=== PATIENT | male | born 1935 | race Caucasian/White ===

== ENCOUNTER 2018-11-11 10:42 | Emergency (ER) | payer MEDICARE ==
[2018-11-11 10:51] VITALS: BP 188/85
--- NOTE | 2018-11-11 11:10 | UC ---
Abdominal Pain Male HPI - HPI Summary HPI Summary: Patient is a 83 year old gentleman who presents today with abdominal pain and a mass for past 2 weeks. Notices a mass superior to the umbilicus, first time noticed it after shoveling but it was not painful at that time. Noticed worsening last night with some pain. Denies any other symptoms. Unsure of what makes it worse or better. Denies any fever, chills, cough chest pain or shortness of breath . Denies any abdominal pain , nausea or vomiting , diarrhea or constipation. - History of Current Complaint Chief Complaint: UCAbdominalPain Stated Complaint: ABD PAIN Time Seen by Provider: 11/11/18 11:02 Hx Obtained From: Patient Pain Intensity: 4 - Allergies/Home Medications Allergies/Adverse Reactions: Allergies Allergy/AdvReac Type Severity Reaction Status Date / Time No Known Allergies Allergy Verified 11/11/18 10:44 PMH/Surg Hx/FS Hx/Imm Hx - Additional Past Medical History Additional PMH: Hypertension Hyperlipidemia Previously Healthy: Yes - Surgical History Surgical History: Yes Surgery Procedure, Year, and Place: HERNIA REPAIR 1989 [facility] – [place]. RIGHT KNEE SCOPING 1989? [facility] [place]. BILAT CATARACT REMOVAL 2013 [facility] [place]. 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 - Family History Known Family History: Positive: None - Social History Alcohol Use: Daily Alcohol Amount: 1 WINE OR BEER DAILY Substance Use Type: None Smoking Status (MU): Never Smoked Tobacco Have You Smoked in the Last Year: No - Immunization History Most Recent Influenza Vaccination: 07/2016 Most Recent Tetanus Shot: 2008 Most Recent Pneumonia Vaccination: 08/2006 Review of Systems All Other Systems Reviewed And Are Negative: Yes Constitutional: Positive: Negative Skin: Positive: Negative Eyes: Positive: Negative ENT: Positive: Negative Respiratory: Positive: Negative Cardiovascular: Positive: Negative Gastrointestinal: Positive: Abdominal Pain, Other - Periumbilical abdominal lump Genitourinary: Positive: Negative Motor: Positive: Negative Neurovascular: Positive: Negative Musculoskeletal: Positive: Negative Neurological: Positive: Negative Psychological: Positive: Negative Is Patient Immunocompromised?: No Physical Exam - Summary Physical Exam Summary: Physical Exam: Const: Appears well. No signs of apparent distress present. Alert and oriented x 3. Musculo: Walks with a normal gait. Head/Face: Atraumatic, normocephalic on inspection. Eyes: EOMI and PERRLA in both eyes. Conjunctivae clear. No discharge noted ENT: Hearing normal, TM normal appearing bilaterally . Respiratory: Respirations are unlabored. Lungs clear to auscultation bilaterally, no wheezing , rhonchi or rales noted . CVS: Regular rate and Rhythm, S1S2 normal , no murmurs identified. Extremities: Peripheral circulation is grossly normal. Pulses 2+ Abdomen : Soft non tender , nondistended , Bowel sounds present . No guarding , rebound tenderness or rigidity noted. There is a 3 inch x 3 inch lump noted 1 inch superior to umbilicus. Slightly tender solid mass. Freely mobile. No fluctuation or redness noted Mild weakness of rectus abdominis noted Skin: No lesions or rash located on the upper extremities or on the lower extremities. Neuro: Cranial nerves II to XII intact, motor and sensory intact. DTR Intact bilaterally. Mood is normal. Affect is normal. Triage Information Reviewed: Yes Vital Signs: Initial Vital Signs Temp 97.5 F 11/11/18 10:46 Pulse 66 11/11/18 10:46 Resp 18 11/11/18 10:46 BP 188/85 11/11/18 10:46 Pulse Ox 99 11/11/18 10:46 Vital Signs Reviewed: Yes Abd Pain Male Course/Dx - Course Course Of Treatment: During the visit today, we discussed the findings which can be secondary to a lipoma and weak rectus abdominis muscle. We discussed further options and plan for further evaluation with ultrasound. Report called to the ER provider(MAGED Martinez) at [facility], advised provider of the history, physical examination, and duration of illness so far and the need for definitive management. Patient expressed understanding . - Differential Dx/Clinical Impression Provider Diagnosis: Abdominal pain, Abdominal mass, Abdominal wall mass, Lipoma Discharge - Sign-Out/Discharge Documenting (check all that apply): Patient Departure All imaging exams completed and their final reports reviewed: No Studies - Discharge Plan Condition: Stable Disposition: HOME Patient Education Materials: Lipoma (ED) Referrals: Rell Belcher MD [Primary Care Provider] - 1 Week Additional Instructions: Patient needs additional testing, thus ER transfer advised and patient agrees. Report called to the ER provider at [facility], advised provider of the history, physical examination, and duration of illness so far and the need for further evaluation. Patient will go to ER via private car. Patients blood pressure slightly high in Urgent care today , plan follow up with PCP for better control Return to Urgent care / ER if symptoms get worse. - Billing Disposition and Condition Condition: STABLE Disposition: Home
--- NOTE | 2018-11-11 17:30 | ED ---
Abdominal Pain/Male - HPI Summary HPI Summary: Patient is an 83-year-old male who presents emergency department for evaluation of a mass to abd. wall x several months. Pt. states states he was shoveling snow a few months ago and since has noticed a bulge to abd. wall. pt. states last night bulge was larger and more painful. Pt. otherwise denies fever, chills , N/V, abd. pain. Past medical hx of HTN and high cholesterol. Symptoms are moderate in severiy. No current modifying factors. - History of Current Complaint Chief Complaint: UCAbdominalPain Stated Complaint: ABD PAIN Time Seen by Provider: 11/11/18 11:02 Hx Obtained From: Patient Pain Intensity: 0 Pain Scale Used: 0-10 Numeric - Allergies/Home Medications Allergies/Adverse Reactions: Allergies Allergy/AdvReac Type Severity Reaction Status Date / Time No Known Allergies Allergy Verified 11/11/18 12:09 PMH/Surg Hx/FS Hx/Imm Hx Previously Healthy: Yes Endocrine/Hematology History: Denies: Hx Diabetes, Hx Thyroid Disease Cardiovascular History: Reports: Hx Hypertension, Other Cardiovascular Problems/ Disorders - HIGH CHOLESTROL ON MEDS Respiratory History: Denies: Hx Asthma, Hx Chronic Obstructive Pulmonary Disease (COPD) GI History: Denies: Hx Ulcer Musculoskeletal History: Reports: Hx Arthritis - BILAT HIPS, KNEES Sensory History: Reports: Hx Cataracts - BILAT CATARACT [id number], Hx Contacts or Glasses Denies: Hx Hearing Aid Opthamlomology History: Reports: Hx Cataracts - BILAT CATARACT [id number], Hx Contacts or Glasses - Surgical History Surgery Procedure, Year, and Place: [place] [facility] [place] [facility] [place] [facility] 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 Hx Anesthesia Reactions: No Infectious Disease History: Yes Infectious Disease History: Reports: Hx Shingles - 1970s Denies: Hx Hepatitis, Hx Human Immunodeficiency Virus (HIV), Hx of Known/ Suspected MRSA, Traveled Outside the [place] in Last 30 Days - Family History Known Family History: Positive: None, Non-Contributory - Social History Occupation: Retired Lives: With Family Alcohol Use: Daily Alcohol Amount: 1 WINE OR BEER DAILY Substance Use Type: Reports: None Smoking Status (MU): Never Smoked Tobacco Have You Smoked in the Last Year: No Review of Systems Constitutional: Negative Negative: Fever, Chills Cardiovascular: Negative Respiratory: Negative Positive: Other - abd. bulge. Negative: Vomiting, Diarrhea Genitourinary: Negative Neurological: Negative All Other Systems Reviewed And Are Negative: Yes Physical Exam Triage Information Reviewed: Yes Vital Signs On Initial Exam: Initial Vitals Temp Pulse Resp BP Pulse Ox 97.5 F 66 18 188/85 99 11/11/18 10:46 11/11/18 10:46 11/11/18 10:46 11/11/18 10:46 11/11/18 10:46 Vital Signs Reviewed: Yes Appearance: Positive: Well-Appearing - Pt. lying in bed in NAD. present. Skin: Positive: Warm, Dry Head/Face: Positive: Normal Head/Face Inspection Eyes: Positive: Normal, EOMI Neck: Positive: Supple Respiratory/Lung Sounds: Positive: Clear to Auscultation, Breath Sounds Present Cardiovascular: Positive: Normal, RRR Abdomen Description: Positive: Other: - Noted above the umbilicus there is a large soft bulge that is mildly tender. Break in the abd. wall felt when pt. picks head off of bed. No rebound tenderness of guarding. Musculoskeletal: Positive: Normal, Strength/ROM Intact Neurological: Positive: Normal, CN Intact II-III Diagnostics - Vital Signs Vital Signs Temp Pulse Resp BP Pulse Ox 11/11/18 10:46 97.5 F 66 18 188/85 99 - Laboratory Lab Statement: Any lab studies that have been ordered have been reviewed, and results considered in the medical decision making process. Abdominal Pain Fem Course/Dx - Course Course Of Treatment: Patient had with likely large ventral hernia. He is afebrile with stable vital signs. Patient has minimal pain but is tender on exam. We'll check basic labs and obtain CT scan for further evaluation of possible bowel containing hernia. Labs are unremarkable. CT scan per radiology : IMPRESSION: 1. 3.5 cm above the umbilicus, there is a fat-containing hernia which which measures 2.4. x 2.4 cm. There is subtle stranding/inflammation of the surrounding subcutaneous fat. 2. The prostate measures at least 6 cm. The urinary bladder is distended. 3. Colonic diverticulosis with no secondary signs of inflammation. 4. Cholelithiasis. 5. Bilateral fat-containing inguinal hernias. 6. Bilateral hip arthroplasties. Patient was examined by Dr. Latif as well who was successfully able to reduce hernia. Will have patient follow up with surgery for definitive care. Advised patient to avoid heavy lifting and bending. To return to the ER for increased pain, fever, vomiting or if concerned. Patient understands and agrees with plan. - Diagnoses Differential Diagnosis/HQI/PQRI: Bowel Obstruction, Constipation, Ischemic Bowel Provider Diagnoses: Ventral hernia Discharge - Sign-Out/Discharge Documenting (check all that apply): Patient Departure All imaging exams completed and their final reports reviewed: No Studies - Discharge Plan Condition: Improved Disposition: HOME Patient Education Materials: Lipoma (ED) Referrals: Rell Belcher MD [Primary Care Provider] - 1 Week Additional Instructions: Patient needs additional testing, thus ER transfer advised and patient agrees. Report called to the ER provider at [facility], advised provider of the history, physical examination, and duration of illness so far and the need for further evaluation. Patient will go to ER via private car. Patients blood pressure slightly high in Urgent care today , plan follow up with PCP for better control Return to Urgent care / ER if symptoms get worse. - Billing Disposition and Condition Condition: IMPROVED Disposition: Home
--- NOTE | 2018-12-08 13:05 | CONSULT ---
Consult Consult: Mr. Brown presented with a painful ventral hernia. RACHELE Mcmahon evaluated the patient and made the diagnosis. He asked me to see the patient concerning reduction. Mr. Brown was nontoxic in appearance with stable vital signs when I saw him. He was very cooperative and allowed me to make an attempted reduction with just the medications he had on board already. He had a mass just superior to his umbilicus that was not erythematous or exquisitely tender. I was able to reduce it successfully and his discharge and follow-up was arranged by Mr. Lamb. His diagnosis was ventral hernia reduction.
== END 2018-11-11 11:40 | disposition home or self-care (01) ==
LOC: UCEAST 10:42
DX: R19.05 Periumbilic swelling, mass or lump (principal); D17.5 Benign lipomatous neoplasm of intra-abdominal organs; D17.79 Benign lipomatous neoplasm of other sites; I10 Essential (primary) hypertension
CPT/HCPCS: 99212; G0463

== ENCOUNTER 2018-11-11 12:00 | Emergency (ER) | payer MEDICARE ==
--- NOTE | 2018-11-11 12:27 | ED ---
Abdominal Pain/Male - HPI Summary HPI Summary: Patient is an 83-year-old male who presents emergency department for evaluation of a an abdominal mass times several weeks. Patient states a few months ago he was shoveling snow and since has noted a bulge just above his umbilicus. Patient noticed increased pain to the area and went to urgent care for evaluation. He was referred to the ER for further evaluation. Patient otherwise denies chills, fever, vomiting, diarrhea, constipation, urinary symptoms. Past medical history of hypertension and high cholesterol. Symptoms are moderate in severity. Lifting makes symptoms worse. Nothing makes symptoms better. - History of Current Complaint Chief Complaint: EDAbdPain Stated Complaint: ABD PAIN Time Seen by Provider: 11/11/18 12:10 Hx Obtained From: Patient Pain Intensity: 0 - Allergies/Home Medications Allergies/Adverse Reactions: Allergies Allergy/AdvReac Type Severity Reaction Status Date / Time No Known Allergies Allergy Verified 11/11/18 12:09 PMH/Surg Hx/FS Hx/Imm Hx Previously Healthy: Yes Endocrine/Hematology History: Denies: Hx Diabetes, Hx Thyroid Disease Cardiovascular History: Reports: Hx Hypertension, Other Cardiovascular Problems/ Disorders - HIGH CHOLESTROL ON MEDS Respiratory History: Denies: Hx Asthma, Hx Chronic Obstructive Pulmonary Disease (COPD) GI History: Denies: Hx Ulcer Musculoskeletal History: Reports: Hx Arthritis - BILAT HIPS, KNEES Sensory History: Reports: Hx Cataracts - BILAT CATARACT [id number], Hx Contacts or Glasses Denies: Hx Hearing Aid Opthamlomology History: Reports: Hx Cataracts - BILAT CATARACT [id number], Hx Contacts or Glasses - Surgical History Surgery Procedure, Year, and Place: [place] [facility] [place] 1989[place] [facility] [place] BILAT CATARACT REMOVAL [place] [facility] [place] 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 Hx Anesthesia Reactions: No Infectious Disease History: No Infectious Disease History: Reports: Hx Shingles - 1970s Denies: Hx Hepatitis, Hx Human Immunodeficiency Virus (HIV), Hx of Known/ Suspected MRSA, Traveled Outside the [place] in Last 30 Days - Family History Known Family History: Positive: None, Non-Contributory - Social History Occupation: Retired Lives: With Family Alcohol Use: Daily Alcohol Amount: 1 WINE OR BEER DAILY Substance Use Type: Reports: None Smoking Status (MU): Never Smoked Tobacco Have You Smoked in the Last Year: No Review of Systems Constitutional: Negative Negative: Fever, Chills Cardiovascular: Negative Respiratory: Negative Positive: Other - Abd. mass Genitourinary: Negative Neurological: Negative All Other Systems Reviewed And Are Negative: Yes Physical Exam Triage Information Reviewed: Yes Vital Signs On Initial Exam: Initial Vitals Temp Pulse Resp BP Pulse Ox 98.0 F 69 16 190/66 97 11/11/18 12:01 11/11/18 12:01 11/11/18 12:01 11/11/18 12:01 11/11/18 12:01 Vital Signs Reviewed: Yes Appearance: Positive: Well-Appearing - Pt. lying in bed in NAD. present. Skin: Positive: Warm, Dry Head/Face: Positive: Normal Head/Face Inspection Eyes: Positive: Normal, EOMI Neck: Positive: Supple Respiratory/Lung Sounds: Positive: Clear to Auscultation, Breath Sounds Present Cardiovascular: Positive: Normal, RRR Abdomen Description: Positive: Other: - Obese. Abd. is soft with large bulge noted to the midline just above umbilicus. Area is mildly tender. Mass increased when pt. sits up. Musculoskeletal: Positive: Normal, Strength/ROM Intact Neurological: Positive: Normal, CN Intact II-III Psychiatric: Positive: Affect/Mood Appropriate Diagnostics - Vital Signs Vital Signs Temp Pulse Resp BP Pulse Ox 11/11/18 12:01 98.0 F 69 16 190/66 97 - Laboratory Result Diagrams: 11/11/18 11:40 11/11/18 12:33 Lab Statement: Any lab studies that have been ordered have been reviewed, and results considered in the medical decision making process. Abdominal Pain Fem Course/Dx - Course Course Of Treatment: Patient had with likely large ventral hernia. He is afebrile with stable vital signs. Patient has minimal pain but is tender on exam. We'll check basic labs and obtain CT scan for further evaluation of possible bowel containing hernia. Labs are unremarkable. CT scan per radiology : IMPRESSION: 1. 3.5 cm above the umbilicus, there is a fat-containing hernia which which measures 2.4. x 2.4 cm. There is subtle stranding/inflammation of the surrounding subcutaneous fat. 2. The prostate measures at least 6 cm. The urinary bladder is distended. 3. Colonic diverticulosis with no secondary signs of inflammation. 4. Cholelithiasis. 5. Bilateral fat-containing inguinal hernias. 6. Bilateral hip arthroplasties. Patient was examined by Dr. Latif as well who was successfully able to reduce hernia. Will have patient follow up with surgery for definitive care. Advised patient to avoid heavy lifting and bending. To return to the ER for increased pain, fever, vomiting or if concerned. Patient understands and agrees with plan. - Diagnoses Differential Diagnosis/HQI/PQRI: Bowel Obstruction, Diverticulitis, Ischemic Bowel Provider Diagnoses: Ventral hernia Discharge - Sign-Out/Discharge Documenting (check all that apply): Patient Departure - Discharge Plan Condition: Improved Disposition: HOME Patient Education Materials: Ventral Hernia (ED) Referrals: Maryam Patel MD [Medical Doctor] - Rell Belcher MD [Primary Care Provider] - Additional Instructions: Call Dr. Patel's office tomorrow to schedule a follow up appointment with surgery Avoid heavy lifting and bending Return to ER for increased pain, fever, or if concerned - Billing Disposition and Condition Condition: IMPROVED Disposition: Home
[2018-11-11 12:43] LABS: ABS Basophils 0 10^3/ul (0-0.2); ABS Eosinophils 0.1 10^3/ul (0-0.6); ABS Lymphocytes 1.6 10^3/ul (1.0-4.8); ABS Monocytes 0.9 10^3/ul (0-0.8); ABS Neutrophils 6.2 10^3/ul (1.5-7.7); ABS Nucleated RBC 0 10^3/ul; Hematocrit 48 % (42-52); Hemoglobin 16.1 g/dl (14.0-18.0); Lymphocyte % 17.9 %; Mean Corpuscular HGB Conc 33 g/dl (31-36); Mean Corpuscular Hemoglobin 31 pg (27-31); Mean Corpuscular Volume 92 fL (80-94); Nucleated Red Blood Cells % 0; Platelet Count 183 10^3/ul (150-450); Red Blood Count 5.22 10^6/ul (4.00-5.40); Red Cell Distribution Width 14 % (10.5-15); White Blood Count 8.8 10^3/ul (3.5-10.8)
[2018-11-11 12:59] LABS: ALT 24 U/L (7-52); Albumin 3.9 g/dL (3.2-5.2); Albumin/Globulin Ratio 1.3 (1-3); Alkaline Phosphatase 48 U/L (34-104); BUN/Creatinine Ratio 16.7 (8-20); Blood Urea Nitrogen 19 mg/dL (6-24); CO2 Carbon Dioxide 27 mmol/L (22-32); Calcium 9.8 mg/dL (8.6-10.3); Chloride 105 mmol/L (101-111); EGFR Non-African American 61.5 (>60); Globulin 3.1 g/dL (2-4); Glucose 115 mg/dL (70-100); Sodium 137 mmol/L (135-145)
[2018-11-11 13:01] LABS: Anion Gap 5 mmol/L (2-11)
[2018-11-11] MEDS ORDERED: Iohexol 300* (CONTRAST) 10 ML SDV IV ONE (13:11)
[2018-11-11 15:48] VITALS: BP 164/82
== END 2018-11-11 15:46 | disposition home or self-care (01) ==
LOC: ED 12:00
DX: K43.9 Ventral hernia without obstruction or gangrene (principal); R10.9 Unspecified abdominal pain; I10 Essential (primary) hypertension
CPT/HCPCS: 36415; 74177; 80053; 85025; 99282; Q9967

== ENCOUNTER 2024-11-23 14:52 | Observation (INO) ==
[2024-11-23] MEDS: Lactated Ringers 1000 ml BAG 1,000 ML IV ONE (15:42)
[2024-11-23 16:06] LABS: ABS Lymphocytes 0.6 10^3/uL (1.0-4.8); ABS Monocytes 0.7 10^3/uL (0.0-1.1); ABS Neutrophils 8.5 10^3/uL (1.5-7.6); Eosinophil % 0.4 %; Hematocrit 19.7 % (38-53); Hemoglobin 6.3 g/dL (13.2-16.3); Lymphocyte % 6.4 %; Mean Corpuscular Hemoglobin 26.1 pg (27-33); Mean Corpuscular Hgb Conc 32.2 g/dL (31-36); Mean Corpuscular Volume 80.8 fL (80-97); Platelet Count 255 10^3/uL (150-450); Red Blood Count 2.43 10^6/uL (4.06-5.63); Red Cell Distribution Width 16.2 % (12-17); White Blood Count 9.9 10^3/uL (3.6-10.2)
[2024-11-23 16:21] LABS: INR 1.28 (0.85-1.14)
[2024-11-23 16:25] LABS: High Sens Troponin Baseline 41 pg/mL (<20)
[2024-11-23 16:41] LABS: ALT 10 U/L (7-52); AST 18 U/L (13-39); Albumin 3.8 g/dL (3.5-5.7); Albumin/Globulin Ratio 1.8 (1-3); Alkaline Phosphatase 55 U/L (35-149); Anion Gap 9 mmol/L (2-16); Blood Urea Nitrogen 24 mg/dL (6-24); CO2 Carbon Dioxide 24 mmol/L (22-32); Calcium 8.9 mg/dL (8.6-10.3); Chloride 106 mmol/L (101-111); Creatinine, Serum 1.05 mg/dL (0.67-1.17); Globulin 2.1 g/dL (2-4); Glucose 123 mg/dL (70-100); Magnesium 1.9 mg/dL (1.9-2.7); Potassium 4.2 mmol/L (3.5-5.0); Sodium 139 mmol/L (135-145); Total Bilirubin 0.5 mg/dL (0.2-1.0); Total Protein 5.9 g/dL (6.4-8.9); eGFR CKD-EPI 68.3 (>60)
[2024-11-23 17:28] LABS: High Sensitivity Troponin 1 Hr 39 pg/mL (<20)
[2024-11-23] MEDS: Pantoprazole VIAL 40 MG VIAL IV ONE (17:35)
[2024-11-23 19:53] LABS: % Iron Saturation 5 % (15-55); .Transferrin 310 mg/dL (203-362); C Reactive Protein 1.59 mg/L (<8.01); Iron < 20 ug/dL (50-212); Total Iron Binding Capacity 434 mcg/dL (250-450); Unsaturated Iron Binding 414 ug/dL
[2024-11-23] MEDS ORDERED: Sulfur Hexaflouride MICROSPHR 25 MG VIAL IV PRN (20:05)
[2024-11-23 20:15] LABS: Ferritin 11.1 ng/mL (24-336)
[2024-11-23 20:19] LABS: Folate > 20.00 ng/mL (5.90-24.80)
[2024-11-23 20:20] LABS: Vitamin B12 547 pg/mL (180-914)
[2024-11-23 21:33] LABS: Urine Appearance Clear; Urine Bilirubin Negative (Negative); Urine Blood Negative (Negative); Urine Color Colorless; Urine Glucose Negative (Negative); Urine Ketones Negative (Negative); Urine Nitrite Negative (Negative); Urine Protein Negative (Negative); Urine Specific Gravity 1.009 (1.002-1.030); Urine Urobilinogen Negative (Negative); Urine pH 6.5 (5.0-8.0)
[2024-11-23 21:35] LABS: ABS Basophils 0.1 10^3/uL (0.0-0.1); ABS Lymphocytes 1.3 10^3/uL (1.0-4.8); ABS Monocytes 0.8 10^3/uL (0.0-1.1); ABS Neutrophils 7.4 10^3/uL (1.5-7.6); Corrected Retic Count 0.9 % (0.5-1.5); Eosinophil % 0.3 %; Hematocrit 22.4 % (38-53); Hematocrit for Retic CNT 22.4 % (38-53); Hemoglobin 7.3 g/dL (13.2-16.3); Immature Retic Fraction 0.35; Lymphocyte % 13.9 %; Mean Corpuscular Hemoglobin 26.4 pg (27-33); Mean Corpuscular Hgb Conc 32.8 g/dL (31-36); Mean Corpuscular Volume 80.4 fL (80-97); Mean Platelet Volume 7.9 fL (7.5-11.2); Platelet Count 226 10^3/uL (150-450); RBC Retic Count 2.78 10^6/ul (4.06-5.63); Red Blood Count 2.78 10^6/uL (4.06-5.63); White Blood Count 9.7 10^3/uL (3.6-10.2)
[2024-11-24 06:48] LABS: ABS Eosinophils 0.1 10^3/uL (0.0-0.5); ABS Lymphocytes 1.4 10^3/uL (1.0-4.8); ABS Monocytes 0.8 10^3/uL (0.0-1.1); ABS Neutrophils 5.4 10^3/uL (1.5-7.6); Eosinophil % 1.5 %; Hematocrit 21.5 % (38-53); Hemoglobin 7.1 g/dL (13.2-16.3); Mean Corpuscular Hemoglobin 26.4 pg (27-33); Mean Corpuscular Hgb Conc 33.3 g/dL (31-36); Mean Corpuscular Volume 79.2 fL (80-97); Mean Platelet Volume 7.8 fL (7.5-11.2); Platelet Count 211 10^3/uL (150-450); Red Blood Count 2.71 10^6/uL (4.06-5.63); Red Cell Distribution Width 16.9 % (12-17); White Blood Count 7.7 10^3/uL (3.6-10.2)
[2024-11-24 07:01] LABS: Calcium 8.6 mg/dL (8.6-10.3); Creatinine, Serum 1.06 mg/dL (0.67-1.17); Potassium 3.9 mmol/L (3.5-5.0); eGFR CKD-EPI 67.5 (>60)
[2024-11-24] MEDS: Ferric Gluconate IV 250 MG in NS 0.9% 250 ml 200 ML IVPB SCH (08:22)
[2024-11-24] MEDS ORDERED: COVID VAC 24-25 (12+) (Moderna) Syringe 0.5 mL IM ONE (12:00)
[2024-11-24 15:20] LABS: Hemoglobin 7.9 g/dL (13.2-16.3)
[2024-11-24 15:40] LABS: Calcium 9.1 mg/dL (8.6-10.3); Creatinine, Serum 1.05 mg/dL (0.67-1.17); Potassium 3.8 mmol/L (3.5-5.0); eGFR CKD-EPI 68.3 (>60)
[2024-11-25 06:19] LABS: ABS Eosinophils 0.2 10^3/uL (0.0-0.5); ABS Lymphocytes 1.5 10^3/uL (1.0-4.8); ABS Monocytes 0.9 10^3/uL (0.0-1.1); ABS Neutrophils 5.9 10^3/uL (1.5-7.6); Eosinophil % 1.9 %; Hematocrit 22.3 % (38-53); Hemoglobin 7.1 g/dL (13.2-16.3); Lymphocyte % 17.4 %; Mean Corpuscular Hemoglobin 25.5 pg (27-33); Mean Corpuscular Hgb Conc 31.8 g/dL (31-36); Mean Corpuscular Volume 80.1 fL (80-97); Mean Platelet Volume 7.8 fL (7.5-11.2); Platelet Count 220 10^3/uL (150-450); Red Blood Count 2.79 10^6/uL (4.06-5.63); Red Cell Distribution Width 17.2 % (12-17); White Blood Count 8.5 10^3/uL (3.6-10.2)
[2024-11-25] MEDS ORDERED: Lidocaine 2% PF 5 ML VIAL ONE (11:02)
[2024-11-25 15:53] LABS: Hematocrit 22.9 % (38-53); Hemoglobin 7.2 g/dL (13.2-16.3)
[2024-11-25 21:15] LABS: Hematocrit 24.4 % (38-53); Hemoglobin 8.1 g/dL (13.2-16.3)
[2024-11-26 05:53] LABS: ABS Basophils 0.1 10^3/uL (0.0-0.1); ABS Eosinophils 0.2 10^3/uL (0.0-0.5); ABS Lymphocytes 1.3 10^3/uL (1.0-4.8); ABS Monocytes 0.9 10^3/uL (0.0-1.1); ABS Neutrophils 6.2 10^3/uL (1.5-7.6); ABS Nucleated RBC 0.01 10^3/ul; Eosinophil % 2.5 %; Hematocrit 23.4 % (38-53); Hemoglobin 7.6 g/dL (13.2-16.3); Lymphocyte % 15.3 %; Mean Corpuscular Hgb Conc 32.6 g/dL (31-36); Mean Corpuscular Volume 79.8 fL (80-97); Mean Platelet Volume 7.6 fL (7.5-11.2); Nucleated Red Blood Cells % 0.1 %/100WBC (0.0-0.8); Platelet Count 219 10^3/uL (150-450); Red Blood Count 2.93 10^6/uL (4.06-5.63); White Blood Count 8.7 10^3/uL (3.6-10.2)
[2024-11-26 06:27] LABS: Calcium 8.5 mg/dL (8.6-10.3); Creatinine, Serum 1.01 mg/dL (0.67-1.17); eGFR CKD-EPI 71.5 (>60)
[2024-11-26 09:28] VITALS: BP 131/59
[2024-11-26] MEDS: Aspirin EC 81 mg TAB.EC (enteric coated) PO SCH (09:55)
[2024-11-26 10:00] LABS: Hematocrit 26.6 % (38-53); Hemoglobin 8.7 g/dL (13.2-16.3)
[2024-11-26] MEDS: COVID VAC 24-25 (12+) (Moderna) Syringe 0.5 mL IM ONE (10:01)
== END 2024-11-26 13:40 | disposition home or self-care (01) ==
LOC: ED 14:52 → EDHOLD 14:52 → SUATTDRO 17:53 → EDHOLD 21:32 → MED 22:10
PROVIDERS: ADMIT Hospitalist; ATTEND Hospitalist
PROC: O.GIEGD (2024-11-25 10:50)